=== PATIENT | male | born 1960 | race Hispanic/Latino ===

== ENCOUNTER 2020-04-25 07:41 | Outpatient (CLI) | payer OTHER ==
--- NOTE | 2020-04-25 09:13 | MRI ---
EXAM: MRI left knee PROVIDED CLINICAL HISTORY: Pain COMPARISON: None FINDINGS: The anterior cruciate ligament, posterior cruciate ligament, medial collateral ligament and lateral c ollateral ligamentous complex demonstrate an intact MR appearance, as does the extensor mechanism. There is a near full-thickness radial tear involving the posterior horn of the medial meniscus as it approaches the meniscal root. The lateral meniscus demonstrates no evidence for tear. There is articular cartilage loss involving the central weightbearing portions of the medial femoral condyle which appears full thickness. Articular cartilage appears otherwise preserved. The amount of fluid within the knee joint appears physiologic. No focal concerning regional marrow or muscular signal abnormality is evident. IMPRESSION: 1. Posterior horn medial meniscal tear. 2. Medial femoral condylar articular chondrosis.
== END 2020-04-25 07:42 | disposition home or self-care (01) ==
LOC: BICMRI 07:41
PROVIDERS: ATTEND Orthopaedic Surgery
DX: M25.562 Pain in left knee (principal); S83.242A Other tear of medial meniscus, current injury, left knee, initial encounter; M24.19 Other articular cartilage disorders, other specified site

== ENCOUNTER 2020-08-29 08:02 | Outpatient (CLI) | payer OTHER ==
[2020-08-29 09:49] LABS: #Eosinphils 0.2 10x3/uL (0.0-0.5); #Monocytes 0.3 10x3/uL (0.0-1.1); #Neutrophils 3.2 10x3/uL (1.5-8.4); %Basophils 0.5 % (0.0-2.0); %Eosinophils 3.1 % (0.0-6.0); %Lymphocytes 31.4 % (18.0-47.0); %Monocytes 5.5 % (0.0-10.0); %Neutrophils 59.1 % (40.0-75.0); Hemoglobin 14.7 g/dL (13.5-17.5); Mean Corpuscular HGB CONC 32.6 g/dL (32.0-36.0); Mean Corpuscular Hemoglobin 31.7 pg (27.0-33.0); Mean Corpuscular Volume 97.2 fl (81.2-95.1); Platelet Count 202 10x3/uL (150-450); RBC Distribution Width 12.3 % (11.5-14.5); Red Blood Cell (RBC) Count 4.64 10x6/uL (4.32-5.72); White Blood Cell (WBC) Count 5.5 10x3/uL (3.5-10.5)
[2020-08-29 10:27] LABS: Anion Gap 13 mmol/L (10-20); BUN (Urea Nitrogen) 11 mg/dL (8.4-25.7); Calc. Creatinine Clearance 0 mL/min (70-130); Carbon Dioxide 25 mmol/L (23-31); Chloride 106 mmol/L (98-107); Glucose 140 mg/dL (80-115); Potassium 4.4 mmol/L (3.5-5.1); Sodium 140 mmol/L (136-145)
[2020-08-29 18:10] LABS: SARS-CoV-2 PCR by NAA Not Detected (NotDetected)
== END 2020-08-29 08:03 | disposition home or self-care (01) ==
LOC: LABBT 08:02
PROVIDERS: ATTEND Orthopaedic Surgery
DX: Z01.818 Encounter for other preprocedural examination (principal); M23.222 Derangement of posterior horn of medial meniscus due to old tear or injury, left knee; Z20.822 Contact with and (suspected) exposure to COVID-19
CPT/HCPCS: 80048; 85025; 87635; 93005; 93010; U0003; U0005

== ENCOUNTER 2020-09-19 08:14 | Outpatient (CLI) | payer OTHER ==
[2020-09-19 08:47] LABS: Bilirubin Neg (Negative); Blood, Urine Negative (Negative); Clarity Clear (Clear); Glucose, Urine (Dipstick) 100 mg/dL (Negative); Ketone, Urine Negative (Negative); Leukocyte Negative (Negative); Nitrite Negative (Negative); Protein, Urine (Dipstick) Negative (Neg-Trace); Specific Gravity, Urine 1.015 (1.002-1.036); Urobilinogen Normal mg/dL (Less than 2); pH, Urine 6.5 (5.0-9.0)
[2020-09-19 09:23] LABS: Bacteria/HPF None Seen HPF (None Seen); RBC/HPF 0-3 HPF (0-3); WBC/HPF 0-3 HPF (0-3)
[2020-09-19 16:52] LABS: SARS-CoV-2 PCR by NAA Not Detected (NotDetected)
== END 2020-09-19 08:15 | disposition home or self-care (01) ==
LOC: LABBT 08:14
PROVIDERS: ATTEND Orthopaedic Surgery
DX: Z01.818 Encounter for other preprocedural examination (principal); M23.222 Derangement of posterior horn of medial meniscus due to old tear or injury, left knee; Z20.822 Contact with and (suspected) exposure to COVID-19
CPT/HCPCS: 81001; U0003; U0005

== ENCOUNTER 2020-09-24 05:54 | Day surgery (SDC) | payer OTHER ==
[2020-09-23 11:32] VITALS: BMI 40.0
[2020-09-24] MEDS ORDERED: PROPOFOL 20 ML ONE (06:55)
[2020-09-24] MEDS ORDERED: Fentanyl 100 MCG/2 ML VIAL ONE (07:17)
[2020-09-24] MEDS ORDERED: Bupivacaine HCl 0.5%/Epinephrine 1:200,000/PF 30 ml Vial ONE (07:33)
[2020-09-24] MEDS ORDERED: Ondansetron PF 4 MG/2 ML Vial ONE (07:33)
[2020-09-24] MEDS ORDERED: Ketorolac Tromethamine 30 MG/ML VIAL ONE (07:33)
[2020-09-24] MEDS ORDERED: PROPOFOL 200 MG/20 ML VIAL ONE (07:33)
[2020-09-24] MEDS ORDERED: Lidocaine 2% w/Epinephrine 1:200K 20 ML VIAL ONE (07:33)
== END 2020-09-24 10:30 | disposition home or self-care (01) ==
LOC: SDC 05:54
PROVIDERS: ATTEND Orthopaedic Surgery
PROC: 0SBD4ZZ Excision of Left Knee Joint, Percutaneous Endoscopic Approach (ICD-10-PCS; principal; 2020-09-24)
DX: M23.222 Derangement of posterior horn of medial meniscus due to old tear or injury, left knee (principal); M94.262 Chondromalacia, left knee; I10 Essential (primary) hypertension; E78.00 Pure hypercholesterolemia, unspecified; E11.9 Type 2 diabetes mellitus without complications; M48.061 Spinal stenosis, lumbar region without neurogenic claudication; E78.5 Hyperlipidemia, unspecified; K21.9 Gastro-esophageal reflux disease without esophagitis; Z87.891 Personal history of nicotine dependence; Z79.899 Other long term (current) drug therapy; Z98.84 Bariatric surgery status
CPT/HCPCS: J0690; J1885; J2405; J2704; J3010

== ENCOUNTER 2023-10-11 05:39 | Day surgery (SDC) | payer BC ==
[2023-10-10 09:54] VITALS: BMI 39.0
[2023-10-11] MEDS ORDERED: PROPOFOL 40 ML ONE (08:40)
[2023-10-11] MEDS ORDERED: PROPOFOL 20 ML ONE ×2 (08:41→09:38)
[2023-10-11] MEDS ORDERED: Lidocaine 2% 6 ML (Jelly) SYR ONE (09:21)
[2023-10-11] MEDS ORDERED: fentaNYL PF 100 MCG/2 ML SYRINGE ONE (09:40)
== END 2023-10-11 11:35 | disposition home or self-care (01) ==
LOC: SDC 05:39
PROVIDERS: ATTEND Internal Medicine Gastroenterology
PROC: 0DB58ZX Excision of Esophagus, Via Natural or Artificial Opening Endoscopic, Diagnostic (ICD-10-PCS; principal; 2023-10-11)
PROC: 0DBL8ZZ Excision of Transverse Colon, Via Natural or Artificial Opening Endoscopic (ICD-10-PCS; principal; 2023-10-11)
PROC: 0DBN8ZZ Excision of Sigmoid Colon, Via Natural or Artificial Opening Endoscopic (ICD-10-PCS; principal; 2023-10-11)
PROC: 0DB98ZX Excision of Duodenum, Via Natural or Artificial Opening Endoscopic, Diagnostic (ICD-10-PCS; principal; 2023-10-11)
DX: Z12.11 Encounter for screening for malignant neoplasm of colon (principal); D12.3 Benign neoplasm of transverse colon; K31.A0 Gastric intestinal metaplasia, unspecified; K31.9 Disease of stomach and duodenum, unspecified; D12.5 Benign neoplasm of sigmoid colon; K57.30 Diverticulosis of large intestine without perforation or abscess without bleeding; K21.00 Gastro-esophageal reflux disease with esophagitis, without bleeding; K22.10 Ulcer of esophagus without bleeding; K29.50 Unspecified chronic gastritis without bleeding; E11.9 Type 2 diabetes mellitus without complications; E78.00 Pure hypercholesterolemia, unspecified; I10 Essential (primary) hypertension; Z98.890 Other specified postprocedural states; Z98.84 Bariatric surgery status; Z86.010 Personal history of colon polyps; Z79.899 Other long term (current) drug therapy
CPT/HCPCS: 88305; 88312; 88313; 88342; J2704

== ENCOUNTER 2024-01-31 15:14 | Outpatient (CLI) | payer MEDICARE, OTHER ==
[2024-01-31 16:17] LABS: #Basophils 0.03 10x3/uL (0.0-0.2); %Basophils 0.4 % (0.0-1.0); %Eosinophils 1.3 % (0.0-10.0); %Lymphocytes 24.8 % (21.0-51.0); %Neutrophils 67.4 % (42.0-75.0); Hematocrit 43.8 % (42.0-52.0); Hemoglobin 14.6 g/dL (14.0-18.0); Mean Corpuscular HGB CONC 33.3 g/dL (32.0-36.0); Mean Corpuscular Hemoglobin 32.1 pg (27.0-31.0); Mean Corpuscular Volume 96.3 fL (78.0-98.0); Mean Platelet Volume 10.2 fL (7.4-10.4); Platelet Count 193 10x3/uL (130-400); RBC Distribution Width 12.5 % (11.5-14.5); Red Blood Cell (RBC) Count 4.55 mill/uL (4.70-6.10)
[2024-01-31 16:40] LABS: ALT (SGPT) 16 U/L (8-55); AST (SGOT) 19 U/L (5-34); Albumin 3.8 g/dL (3.4-4.8); Alkaline Phosphatase 63 U/L (40-110); Anion Gap 12 mmol/L (10-20); BUN (Urea Nitrogen) 12 mg/dL (8.4-25.7); Bilirubin, Total 1.3 mg/dL (0.2-1.2); Calc. Creatinine Clearance 0 mL/min (70-130); Carbon Dioxide 23 mmol/L (23-31); Chloride 107 mmol/L (98-107); Estimated GFR 86; Globulin 3.1 g/dL (2.4-3.5); Glucose 147 mg/dL (80-115); Protein, Total 6.9 g/dL (5.8-8.1); Sodium 138 mmol/L (136-145)
== END 2024-01-31 15:15 | disposition home or self-care (01) ==
LOC: LABBT 15:14
PROVIDERS: ATTEND Internal Medicine Cardiovascular Disease
DX: Z01.818 Encounter for other preprocedural examination (principal)
CPT/HCPCS: 80053; 85025; 93005; 93010

== ENCOUNTER 2024-02-07 05:52 | Day surgery (SDC) | payer MEDICARE, OTHER ==
[2024-01-31 15:33] VITALS: BMI 38.5
[2024-02-07] MEDS ORDERED: Nitroglycerin 50 MG/250 ML BOT 250 ML ONE (06:18)
[2024-02-07] MEDS ORDERED: Adenosine 6 mg (2 mL) VIAL ONE (06:18)
[2024-02-07] MEDS ORDERED: Heparin 10,000 UNITS/ 10 ML VIAL ONE (06:18)
[2024-02-07] MEDS ORDERED: Verapamil 5 MG/2 ML VIAL ONE ×2 (06:18→06:20)
[2024-02-07] MEDS ORDERED: fentaNYL 50 mcg/mL 1 mL Vial ONE (07:15)
[2024-02-07] MEDS ORDERED: Midazolam HCl 2 mg/2 ml Vial ONE (07:15)
[2024-02-07] MEDS ORDERED: Iopamidol 370 76% 100 ML VIAL ONE (10:26)
== END 2024-02-07 10:30 | disposition home or self-care (01) ==
LOC: SDC 05:52
PROVIDERS: ATTEND Internal Medicine Cardiovascular Disease
PROC: 4A023N7 Measurement of Cardiac Sampling and Pressure, Left Heart, Percutaneous Approach (ICD-10-PCS; principal; 2024-02-07)
DX: R06.02 Shortness of breath (principal); R94.39 Abnormal result of other cardiovascular function study; Z98.84 Bariatric surgery status; Z98.890 Other specified postprocedural states; Z79.2 Long term (current) use of antibiotics
CPT/HCPCS: 93458; C1769; C1894; J1644; J2250; J3010; 99152; J0153